=== PATIENT | male | born 1950 | race Caucasian/White ===

== ENCOUNTER 2019-12-17 14:03 | Emergency (ER) | payer MEDICARE, OTHER, SELFPAY ==
[2019-12-17 14:49] VITALS: BP 126/84; PULSE 102; RESP 14; TEMP 36.8; O2SAT 96; BMI 31.1
--- NOTE | 2019-12-17 15:57 | ED_ITS ---
Documented by User: JUS Booth 12/20/19 17:22 HPI - Extremity Problem General: Chief complaint: General Medical Stated complaint: leg pain Time Seen by Provider: 12/17/19 15:56 Source: patient Mode of arrival: ambulatory Limitations: no limitations History of Present Illness: HPI Narrative: Patient is a very nice 69-year-old gentleman who presents to ED today with a complaint of a rash/redness/swelling to his bilateral lower extremities. Patient tells me a few weeks ago he accidentally struck his bilateral shins creating small abrasions. He was seen by PCP on a routine visit fairly shortly afterwards who did not seem concerned as the abrasions looked clean at the time. Patient tells me shortly after he began noticing redness to the anterior aspects of his lower legs. He was prescribed Bactrim for this. He tells me he took 3-4 doses and began breaking out in a rash. He states he was seen at another facility in [place] who told him he most likely had an allergy to sulfa drugs and switched his antibiotic to clindamycin. Patient got this prescription filled on 12/14 and has had a few doses. He tells me he feels like the redness and swelling in his legs are worsening. MD Complaint: extremity pain and extremity swelling Pain Consistency: constant Location: left, right and lower extremity Quality: burning Radiation: none Relieving factors: nothing Exacerbating factors: nothing Associated symptoms: Reports no associated symptoms and rash; Deny chest pain or fever(s) Review of Systems Const: Reports: body aches; Denies: fever(s), chills, change in appetite, change in weight, fatigue or malaise Card: Denies: chest pain Resp: Denies: dyspnea GI: Denies: abdominal pain, nausea or vomiting Musc: Reports: extremity pain and extremity swelling; Denies: neck pain, back pain, joint pain or joint swelling Skin/Breast: Reports: rash Neuro: Denies: headache(s), numbness in extremities, weakness in extremities or sensory changes Physical Exam Const: COMMON NORMALS: no acute distress, average body habitus, patient oriented x3, no limitations, healthy appearing, alert and well nourished HENMT: COMMON NORMALS: normocephalic and atraumatic HEAD & SCALP: normocephalic and atraumatic Resp: COMMON NORMALS: normal respiratory effort and clear to auscultation bilaterally AUSCULTATION: clear to auscultation bilaterally Cardio: COMMON NORMALS: regular rate and regular rhythm RATE: regular rate RHYTHM: regular rhythm Extremity: COMMON NORMALS: full ROM, capillary refill normal, no joint enlargement, no clubbing, cyanosis or edema and no calf tenderness OTHER: see skin assessment Neuro: COMMON NORMALS: patient oriented x3, no focal motor deficits and no sensory deficits noted SENSORIUM/ORIENTATION: Yes alert Skin: OTHER: Patient has sharply demarcated erythema to bilateral anterior lower extremities. There are a few areas of superficial sloughed skin with serosanguineous drainage. There is mild edema bilaterally. There is no lymphangitis. No circumferential rash. There is warmth present to bilateral anterior legs. Patient has smaller areas of rash to his bilateral forearms that appear crusted and excoriated-he states these began after taking the Bactrim Course Vital Signs: Vital signs: Vital Signs Temperature 98.3 F 12/17/19 14:49 Pulse Rate 73 12/17/19 19:46 Respiratory Rate 18 12/17/19 19:46 Blood Pressure 148/80 12/17/19 19:46 Pulse Oximetry 100 12/17/19 19:46 MDM - Extremity (Nontraumatic) Lab Data: Labs: Lab Results 12/17/19 12/17/19 12/17/19 Range/Units 16:47 16:47 16:47 WBC 9.2 (4.0-10.0) 10^3/ uL RBC 4.84 (4.1-5.3) 10^6/u L Hgb 14.9 (11.7-16.6) g/dL Hct 44.1 (42.0-52.0) % MCV 91.1 (80-94) fL MCH 30.8 (28.0-34.0) pg MCHC 33.8 (30.0-36.0) g/dL RDW 13.1 (12.1-15.1) % Plt Count 280 (130-400) 10^3/c mm MPV 10.7 H (7.4-10.4) fL Neut % (Auto) 59.4 % Lymph % (Auto) 24.7 % Carlton % (Auto) 8.1 % Eos % (Auto) 7.0 % Baso % (Auto) 0.5 % Neut # (Auto) 5.43 (1.8-7.7) 10^3/u L Lymph # (Auto) 2.3 (0.8-4.8) 10^3/u L Carlton # (Auto) 0.7 (0.2-0.9) 10^3/u L Eos # (Auto) 0.6 (0.0-0.8) 10^3/u L Baso # (Auto) 0.1 (0.0-0.1) 10^3/u L Nucleated RBC % (a uto) 0 % Nucleated RBCs # 0.0 /100WBC Sodium 136 (136-145) mmol/L Potassium 4.4 (3.5-5.1) mmol/L Chloride 103 (98-107) mmol/L Carbon Dioxide 20 L (22-29) mmol/L Anion Gap 17.4 (5-19) BUN 17 (8-23) mg/dL Creatinine 1.2 (0.7-1.2) mg/dL Glucose 106 (65-115) mg/dL Calculated Osmolal ity 279 L (285-295) mOsm/k g Lactate 1.4 (0.5-2.2) mmol/L Calcium 9.5 (8.5-10.5) mg/dL Total Bilirubin 0.4 (0.15-1.2) mg/dL AST 20 (0-40) U/L ALT 14 (0-41) U/L Alkaline Phosphata se 91 (40-130) IU/L C-Reactive Protein 16.1 H (0.0-4.9) mg/L Total Protein 7.5 (6.6-8.7) g/dL Albumin 4.2 (3.5-5.2) g/dL Globulin 3.3 (1.3-4.6) g/dL Urine Color (Yellow) Urine Appearance (CLEAR) Urine pH (5-7) Ur Specific Gravit y (1.005-1.030) Urine Protein (Negative) Urine Glucose (UA) (Normal) Urine Ketones (Negative) Urine Blood (Negative) Urine Nitrate (Negative) Urine Bilirubin (NEGATIVE) Urine Urobilinogen (Negative) mg/dL Ur Leukocyte Mirian ase (Negative) 12/17/19 Range/Units 17:15 WBC (4.0-10.0) 10^3/ uL RBC (4.1-5.3) 10^6/u L Hgb (11.7-16.6) g/dL Hct (42.0-52.0) % MCV (80-94) fL MCH (28.0-34.0) pg MCHC (30.0-36.0) g/dL RDW (12.1-15.1) % Plt Count (130-400) 10^3/c mm MPV (7.4-10.4) fL Neut % (Auto) % Lymph % (Auto) % Carlton % (Auto) % Eos % (Auto) % Baso % (Auto) % Neut # (Auto) (1.8-7.7) 10^3/u L Lymph # (Auto) (0.8-4.8) 10^3/u L Carlton # (Auto) (0.2-0.9) 10^3/u L Eos # (Auto) (0.0-0.8) 10^3/u L Baso # (Auto) (0.0-0.1) 10^3/u L Nucleated RBC % (a uto) % Nucleated RBCs # /100WBC Sodium (136-145) mmol/L Potassium (3.5-5.1) mmol/L Chloride (98-107) mmol/L Carbon Dioxide (22-29) mmol/L Anion Gap (5-19) BUN (8-23) mg/dL Creatinine (0.7-1.2) mg/dL Glucose (65-115) mg/dL Calculated Osmolal ity (285-295) mOsm/k g Lactate (0.5-2.2) mmol/L Calcium (8.5-10.5) mg/dL Total Bilirubin (0.15-1.2) mg/dL AST (0-40) U/L ALT (0-41) U/L Alkaline Phosphata se (40-130) IU/L C-Reactive Protein (0.0-4.9) mg/L Total Protein (6.6-8.7) g/dL Albumin (3.5-5.2) g/dL Globulin (1.3-4.6) g/dL Urine Color Yellow (Yellow) Urine Appearance Clear (CLEAR) Urine pH 5 (5-7) Ur Specific Gravit y 1.020 (1.005-1.030) Urine Protein Neg (Negative) Urine Glucose (UA) Norm (Normal) Urine Ketones Negative (Negative) Urine Blood Neg (Negative) Urine Nitrate Negative (Negative) Urine Bilirubin Neg (NEGATIVE) Urine Urobilinogen Norm (Negative) mg/dL Ur Leukocyte Mirian ase Negative (Negative) Discharge Plan Discharge Patient Disposition: Home, Self-Care Clinical Impression: Erysipelas of both lower extremities Cellulitis Qualifiers: Site of cellulitis: extremity Site of cellulitis of extremity: lower extremity Laterality: unspecified laterality Qualified Code(s): L03.119 - Cellulitis of unspecified part of limb Condition: Stable Prescriptions: New prednisone 20 mg tablet 20 mg PO TID 4 Days Qty: 12 RF: 0 No Action clindamycin HCl 300 mg capsule 300 mg PO TID RF: 0 lisinopril 20 mg tablet 20 mg PO DAILY RF: 0 aspirin 81 mg Tablet,Chewable 81 mg PO EVERY OTHER DAY RF: 0 Discharge Orders: Discharge Order (Routine); Ordered 12/17/19 Ordered By: Abraham Archer Discharge Diet: Regular Discharge Activity: Increase activity as tolerated Patient Instructions: Erysipelas, Cellulitis (ED) Activity Restrictions/Additional Instructions: Follow-up with medical provider as directed. Wound clinic or case management should be contacting you over the next several days to set up an appointment. Take medications as prescribed. Continue taking previously prescribed clindamycin. Take ibuprofen or Tylenol for pain or fevers. Return to the ER or your medical provider if condition worsens. Please read and understand discharge instructions. If any questions, please ask. Discharge Date/Time: 12/17/19 19:48 Sign Out Sign Out Data: Patient Sign Out occurred on 12/17/19 at 17:22. Patient's care was discussed, and care was transferred from to JUS Coffman. Coding Level of Care Code ED Audio Production Instructor for Chg Fwd Exam Detailed Documented by User: JUS Coffman 12/18/19 04:49 HPI - Extremity Problem General: Chief complaint: General Medical Stated complaint: leg pain Time Seen by Provider: 12/17/19 15:56 Course Vital Signs: Vital signs: Vital Signs Temperature 98.3 F 12/17/19 14:49 Pulse Rate 73 12/17/19 19:46 Respiratory Rate 18 12/17/19 19:46 Blood Pressure 148/80 12/17/19 19:46 Pulse Oximetry 100 12/17/19 19:46 MDM - Extremity (Nontraumatic) MDM Narrative: Medical decision making narrative: Patient is a 69-year-old male who comes to the ED with bilateral cellulitis. Patient was seen by PCP and put on Bactrim but then after couple days of taking med developed a rash so he stopped taking the Bactrim and PCP switched him over to clindamycin. He is currently been taking the clindamycin for about 2 days. Patient says he still having pain and rash has not improved yet. Physical exam showed some cellulitis on anterior aspect of lower legs bilaterally. Also some possible signs of erysipelas. CBC and CMP were unremarkable. CRP 16.1 and lactate 1.4. Patient was given IV Vanco while here in the ED and dose of Decadron. Order with case management for patient to be referred to wound clinic placed. Patient told to continue taking clindamycin and he was sent home with an additional prescription of prednisone to help with inflammation. Patient told to follow-up with PCP in 7 to 10 days and that case management should be contacting him in several days to set up an appointment for wound clinic. Return to ED if worsening symptoms. Patient understood and agreed with plan. Lab Data: Attestation: I reviewed the patient's lab results. Labs: Lab Results 12/17/19 12/17/19 12/17/19 Range/Units 16:47 16:47 16:47 WBC 9.2 (4.0-10.0) 10^3/ uL RBC 4.84 (4.1-5.3) 10^6/u L Hgb 14.9 (11.7-16.6) g/dL Hct 44.1 (42.0-52.0) % MCV 91.1 (80-94) fL MCH 30.8 (28.0-34.0) pg MCHC 33.8 (30.0-36.0) g/dL RDW 13.1 (12.1-15.1) % Plt Count 280 (130-400) 10^3/c mm MPV 10.7 H (7.4-10.4) fL Neut % (Auto) 59.4 % Lymph % (Auto) 24.7 % Carlton % (Auto) 8.1 % Eos % (Auto) 7.0 % Baso % (Auto) 0.5 % Neut # (Auto) 5.43 (1.8-7.7) 10^3/u L Lymph # (Auto) 2.3 (0.8-4.8) 10^3/u L Carlton # (Auto) 0.7 (0.2-0.9) 10^3/u L Eos # (Auto) 0.6 (0.0-0.8) 10^3/u L Baso # (Auto) 0.1 (0.0-0.1) 10^3/u L Nucleated RBC % (a uto) 0 % Nucleated RBCs # 0.0 /100WBC Sodium 136 (136-145) mmol/L Potassium 4.4 (3.5-5.1) mmol/L Chloride 103 (98-107) mmol/L Carbon Dioxide 20 L (22-29) mmol/L Anion Gap 17.4 (5-19) BUN 17 (8-23) mg/dL Creatinine 1.2 (0.7-1.2) mg/dL Glucose 106 (65-115) mg/dL Calculated Osmolal ity 279 L (285-295) mOsm/k g Lactate 1.4 (0.5-2.2) mmol/L Calcium 9.5 (8.5-10.5) mg/dL Total Bilirubin 0.4 (0.15-1.2) mg/dL AST 20 (0-40) U/L ALT 14 (0-41) U/L Alkaline Phosphata se 91 (40-130) IU/L C-Reactive Protein 16.1 H (0.0-4.9) mg/L Total Protein 7.5 (6.6-8.7) g/dL Albumin 4.2 (3.5-5.2) g/dL Globulin 3.3 (1.3-4.6) g/dL Urine Color (Yellow) Urine Appearance (CLEAR) Urine pH (5-7) Ur Specific Gravit y (1.005-1.030) Urine Protein (Negative) Urine Glucose (UA) (Normal) Urine Ketones (Negative) Urine Blood (Negative) Urine Nitrate (Negative) Urine Bilirubin (NEGATIVE) Urine Urobilinogen (Negative) mg/dL Ur Leukocyte Mirian ase (Negative) 12/17/19 Range/Units 17:15 WBC (4.0-10.0) 10^3/ uL RBC (4.1-5.3) 10^6/u L Hgb (11.7-16.6) g/dL Hct (42.0-52.0) % MCV (80-94) fL MCH (28.0-34.0) pg MCHC (30.0-36.0) g/dL RDW (12.1-15.1) % Plt Count (130-400) 10^3/c mm MPV (7.4-10.4) fL Neut % (Auto) % Lymph % (Auto) % Carlton % (Auto) % Eos % (Auto) % Baso % (Auto) % Neut # (Auto) (1.8-7.7) 10^3/u L Lymph # (Auto) (0.8-4.8) 10^3/u L Carlton # (Auto) (0.2-0.9) 10^3/u L Eos # (Auto) (0.0-0.8) 10^3/u L Baso # (Auto) (0.0-0.1) 10^3/u L Nucleated RBC % (a uto) % Nucleated RBCs # /100WBC Sodium (136-145) mmol/L Potassium (3.5-5.1) mmol/L Chloride (98-107) mmol/L Carbon Dioxide (22-29) mmol/L Anion Gap (5-19) BUN (8-23) mg/dL Creatinine (0.7-1.2) mg/dL Glucose (65-115) mg/dL Calculated Osmolal ity (285-295) mOsm/k g Lactate (0.5-2.2) mmol/L Calcium (8.5-10.5) mg/dL Total Bilirubin (0.15-1.2) mg/dL AST (0-40) U/L ALT (0-41) U/L Alkaline Phosphata se (40-130) IU/L C-Reactive Protein (0.0-4.9) mg/L Total Protein (6.6-8.7) g/dL Albumin (3.5-5.2) g/dL Globulin (1.3-4.6) g/dL Urine Color Yellow (Yellow) Urine Appearance Clear (CLEAR) Urine pH 5 (5-7) Ur Specific Gravit y 1.020 (1.005-1.030) Urine Protein Neg (Negative) Urine Glucose (UA) Norm (Normal) Urine Ketones Negative (Negative) Urine Blood Neg (Negative) Urine Nitrate Negative (Negative) Urine Bilirubin Neg (NEGATIVE) Urine Urobilinogen Norm (Negative) mg/dL Ur Leukocyte Mirian ase Negative (Negative) Discharge Plan Discharge Patient Disposition: Home, Self-Care Clinical Impression: Erysipelas of both lower extremities Cellulitis Qualifiers: Site of cellulitis: extremity Site of cellulitis of extremity: lower extremity Laterality: unspecified laterality Qualified Code(s): L03.119 - Cellulitis of unspecified part of limb Condition: Stable Prescriptions: New prednisone 20 mg tablet 20 mg PO TID 4 Days Qty: 12 RF: 0 No Action clindamycin HCl 300 mg capsule 300 mg PO TID RF: 0 lisinopril 20 mg tablet 20 mg PO DAILY RF: 0 aspirin 81 mg Tablet,Chewable 81 mg PO EVERY OTHER DAY RF: 0 Discharge Orders: Discharge Order (Routine); Ordered 12/17/19 Ordered By: Abraham Archer Discharge Diet: Regular Discharge Activity: Increase activity as tolerated Patient Instructions: Erysipelas, Cellulitis (ED) Activity Restrictions/Additional Instructions: Follow-up with medical provider as directed. Wound clinic or case management should be contacting you over the next several days to set up an appointment. Take medications as prescribed. Continue taking previously prescribed clindamycin. Take ibuprofen or Tylenol for pain or fevers. Return to the ER or your medical provider if condition worsens. Please read and understand discharge instructions. If any questions, please ask. Discharge Date/Time: 12/17/19 19:48 Sign Out Sign Out Data: Patient Sign Out occurred on 12/17/19 at 17:22. Patient's care was discussed, and care was transferred from to JUS Coffman. Coding Level of Care Code ED Audio Production Instructor for Chg Fwd Exam Detailed
[2019-12-17 16:33] VITALS: BP 135/83; PULSE 84; RESP 17; O2SAT 99
[2019-12-17 16:38] VITALS: O2SAT 99
[2019-12-17 16:58] LABS: Basophils # 0.1 10^3/uL (0.0-0.1); Basophils % 0.5 %; Eosinophils # 0.6 10^3/uL (0.0-0.8); Hematocrit 44.1 % (42.0-52.0); Hemoglobin 14.9 g/dL (11.7-16.6); Lymphocytes # 2.3 10^3/uL (0.8-4.8); Lymphocytes % 24.7 %; Mean Corpuscular HGB Conc 33.8 g/dL (30.0-36.0); Mean Corpuscular Hemoglobin 30.8 pg (28.0-34.0); Mean Corpuscular Volume 91.1 fL (80-94); Mean Platelet Volume 10.7 fL (7.4-10.4); Monocytes # 0.7 10^3/uL (0.2-0.9); Monocytes % 8.1 %; Neutrophils # 5.43 10^3/uL (1.8-7.7); Neutrophils % 59.4 %; Nucleated Red Blood Cells % 0 %; Platelet Count 280 10^3/cmm (130-400); Red Blood Count 4.84 10^6/uL (4.1-5.3); Red Cell Distribution Width 13.1 % (12.1-15.1); White Blood Count 9.2 10^3/uL (4.0-10.0)
[2019-12-17] MEDS: vancomycin 1,000 MG in sodium chloride 0.9% 250 ML 250 MG IV (17:14)
[2019-12-17 17:26] VITALS: BP 132/75; PULSE 100; O2SAT 93
[2019-12-17 17:30] LABS: Lactate (Lactic Acid level) 1.4 mmol/L (0.5-2.2)
[2019-12-17 17:32] LABS: Add Urine Microscopic? NO
[2019-12-17 17:36] LABS: Bilirubin Urine Neg (NEGATIVE); Blood Urine Neg (Negative); Glucose Urine UA Norm (Normal); Ketones Urine Negative (Negative); Leukocyte Esterase Urine Negative (Negative); Nitrate Urine Negative (Negative); Protein Urine Neg (Negative); Urine Appearance Clear (CLEAR); Urine Color Yellow (Yellow); Urobilinogen Urine Norm (Negative); pH Urine 5 (5-7)
[2019-12-17 17:37] LABS: Alanine Aminotransferase 14 U/L (0-41); Albumin Level 4.2 g/dL (3.5-5.2); Alkaline Phosphatase 91 IU/L (40-130); Anion Gap 17.4 (5-19); Aspartate Amino Transferase 20 U/L (0-40); Blood Urea Nitrogen 17 mg/dL (8-23); C Reactive Protein 16.1 mg/L (0.0-4.9); Calcium 9.5 mg/dL (8.5-10.5); Carbon Dioxide 20 mmol/L (22-29); Chloride 103 mmol/L (98-107); Globulin 3.3 g/dL (1.3-4.6); Glucose 106 mg/dL (65-115); Osmolality Calculated 279 mOsm/kg (285-295); Potassium 4.4 mmol/L (3.5-5.1); Sodium 136 mmol/L (136-145); Total Bilirubin 0.4 mg/dL (0.15-1.2); Total Protein 7.5 g/dL (6.6-8.7)
[2019-12-17 18:41] VITALS: BP 134/70; PULSE 65; O2SAT 98
[2019-12-17] MEDS: dexamethasone 4 mg/mL INJ 8 MG IVP (19:24)
--- NOTE | 2019-12-17 19:43 | PC.NURSE ---
telfa added to both legs and wrapped with kerlex bandages bilateral pt tolerated well. All SMCs intact prior and post procedure.
[2019-12-17 19:46] VITALS: BP 148/80; PULSE 73; RESP 18; O2SAT 100
--- NOTE | 2019-12-18 09:22 | DCPLANNER ---
technical sales support manager had message to schedule a follow up appointment for patient with Wound Care. technical sales support manager called Wound Care clinic, spoke with Liliam, gave clinic patients information. technical sales support manager was told that patients information would be printed and reviewed. Clinic will call patient with appointment information.
--- NOTE | 2019-12-22 14:11 | DCPLANNER ---
integration manager called Wound Care to confirm that a follow up appointment had been scheduled for patient. integration manager spoke with Lilia, was told that patient refused referral at this time. Patient was told that the clinic would keep the referral for 30 days if patient changes his mind and would like an appointment.
== END 2019-12-17 19:48 | disposition home or self-care (01) ==
PROVIDERS: Family Medicine; Emergency Provider Physician Assistant
DX: A46 Erysipelas (principal); L03.119 Cellulitis of unspecified part of limb; Z79.82 Long term (current) use of aspirin
CPT/HCPCS: 12345; 80053; 81003; 83605; 85025; 86140; 87040; 96365; 96375; 99283; J1100; J3370; J7050

== ENCOUNTER 2020-02-16 10:03 | Emergency (ER) | payer MEDICARE, OTHER, SELFPAY ==
[2020-02-16 10:09] VITALS: BP 200/109; PULSE 64; RESP 17; TEMP 36.5; O2SAT 96; BMI 29.8
--- NOTE | 2020-02-16 11:03 | ED_ITS ---
HPI - Extremity Problem General: Chief complaint: Extremity Problem,Nontraumatic Stated complaint: leg pain Time Seen by Provider: 02/16/20 10:11 History of Present Illness: HPI Narrative: 69-year-old male complains of rash starting in his buttock going down into his leg he had a little fluid bubble on his buttock that he ruptured yesterday it is somewhat uncomfortable is not had any burning to denies any fever sweats or chills. There is some mild burnin g in that area radiating down. He is got a new rash that is begun the last couple of days. It extends from his buttock down around to his right upper leg and right groin. MD Complaint: extremity pain Onset (ago): day(s) Pain Consistency: constant Location: right Quality: burning Radiation: proximal Relieving factors: nothing Exacerbating factors: palpation Associated symptoms: Reports rash; Deny chest pain or fever(s) Review of Systems Const: Denies: fever(s), chills, body aches, change in appetite, fatigue or malaise ENMT: Denies: throat pain, ear or mastoid pain, nasal discharge or nasal congestion Card: Denies: chest pain, edema, dyspnea on exertion or orthopnea Resp: Denies: dyspnea, productive cough or non-productive cough GI: Denies: abdominal pain, nausea, vomiting, hematemesis, coffee ground emesis, diarrhea, constipation, bloating, hematochezia or melena : Denies: flank pain, dysuria, urinary frequency or urinary urgency Skin/Breast: Reports: rash; Denies: pruritus Physical Exam Const: COMMON NORMALS: no acute distress GENERAL APPEARANCE: cooperative and comfortable ORIENTATION/CONSCIOUSNESS: Yes awake, Yes oriented to person, Yes oriented to place and Yes oriented to time HENMT: COMMON NORMALS: normocephalic, atraumatic and hearing grossly normal bilaterally HEAD & SCALP: normocephalic and atraumatic Neck/C-Spine: COMMON NORMALS: no JVD Resp: COMMON NORMALS: normal respiratory effort, No retractions, No use of accessory muscles and clear to auscultation bilaterally AUSCULTATION: clear to auscultation bilaterally Cardio: COMMON NORMALS: no JVD, regular rate, regular rhythm and No murmurs present (Cardio) RATE: regular rate RHYTHM: regular rhythm GI: COMMON NORMALS: Soft to palpation and No hepatosplenomegaly present AUSCULTATION: Yes normoactive bowel sounds PALPATION: Yes Soft to palpation, No Tenderness to palpation present (GI), No Guarding due to palpation present (GI) and Yes No hepatosplenomegaly present Extremity: COMMON NORMALS: normal to inspection, capillary refill normal, no clubbing, cyanosis or edema, no calf tenderness and no pedal edema Neuro: SENSORIUM/ORIENTATION: Yes oriented to person, Yes oriented to place and Yes oriented to time Skin: NARRATIVE SKIN EXAM: Dermatomal rash radiating from the sacral area down around to the perineum and the medial aspect of the leg a few early vesicles over the sacrum redness and erythema in the other areas skin appears to be forming vesicles. Course Vital Signs: Vital signs: Vital Signs Temperature 97.7 F 02/16/20 10:09 Pulse Rate 60 02/16/20 11:14 Respiratory Rate 15 02/16/20 11:14 Blood Pressure 140/70 02/16/20 11:14 Pulse Oximetry 98 02/16/20 11:14 MDM - Extremity (Nontraumatic) MDM Narrative: Medical decision making narrative: Patient appears to have early zoster this showed up just in last 48 hours we will start him on valacyclovir given hydrocodone for pain follow-up with primary care Discharge Plan Discharge Patient Disposition: Home Clinical Impression: Herpes zoster Condition: Stable Prescriptions: New valacyclovir 1 gram tablet 1,000 mg PO TID 7 Days Qty: 21 RF: 0 hydrocodone-acetaminophen 5-325 mg tablet 1 tab PO Q6H PRN (Reason: pain) Qty: 15 RF: 0 No Action lisinopril 20 mg tablet 20 mg PO DAILY RF: 0 aspirin 81 mg Tablet,Chewable 81 mg PO EVERY OTHER DAY RF: 0 hydroxyzine HCl 25 mg tablet 25 mg PO Q6H PRN (Reason: Itching) RF: 0 methylprednisolone 4 mg tablets,dose pack See Rx Instructions .ROUTE .COMPLEX RF: 0 Discharge Orders: Discharge Order (Routine); Ordered 02/16/20 Ordered By: Gerber Perez Discharge Activity: Increase activity as tolerated Activity Restrictions/Additional Instructions: Follow-up with your primary care doctor as needed Discharge Date/Time: 02/16/20 11:15 Coding Level of Care Code ED Parking Meter Servicer for Chg Cristobal
[2020-02-16 11:14] VITALS: BP 140/70; PULSE 60; RESP 15; O2SAT 98
--- NOTE | 2020-02-16 11:15 | PC.NURSE ---
Read and agree with assessment
== END 2020-02-16 11:15 | disposition home or self-care (01) ==
PROVIDERS: Emergency Provider Family Medicine
DX: B02.9 Zoster without complications (principal); Z79.82 Long term (current) use of aspirin
CPT/HCPCS: 12345; 99282

== ENCOUNTER → 2024-12-29 08:59 | Outpatient (BNVA) | payer MEDICARE, OTHER, SELFPAY | PROVIDERS: PCP Family Medicine; Visit Provider Podiatrist Foot & Ankle Surgery | DX: I73.9 Peripheral vascular disease, unspecified (principal); L60.3 Nail dystrophy | CPT/HCPCS: 11721; 99203 ==

== ENCOUNTER → 2025-03-10 09:55 | Outpatient (BNVA) | payer MEDICARE, OTHER, SELFPAY | PROVIDERS: PCP Family Medicine; Visit Provider Podiatrist Foot & Ankle Surgery | DX: I73.9 Peripheral vascular disease, unspecified (principal); L60.3 Nail dystrophy | CPT/HCPCS: 11721 ==

== ENCOUNTER → 2025-05-26 10:24 | Outpatient (BNVA) | payer MEDICARE, OTHER, SELFPAY | PROVIDERS: PCP Family Medicine; Visit Provider Podiatrist Foot & Ankle Surgery | DX: I73.9 Peripheral vascular disease, unspecified (principal); L60.3 Nail dystrophy; L60.8 Other nail disorders | CPT/HCPCS: 11721 ==